=== PATIENT | female | born 1995 | race Caucasian/White ===

== ENCOUNTER 2017-05-06 21:10 | Emergency (ER) | payer OTHER ==
[2017-05-06 21:21] VITALS: BP 146/87
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
== END 2017-05-06 22:14 | disposition home or self-care (01) ==
LOC: ED 21:10
DX: S61.412A Laceration without foreign body of left hand, initial encounter (principal); W26.0XXA Contact with knife, initial encounter; Y93.G3 Activity, cooking and baking; Y92.010 Kitchen of single-family (private) house as the place of occurrence of the external cause
CPT/HCPCS: 12001; 99282; 99283